=== PATIENT | female | born 1980 | race Caucasian/White ===

== ENCOUNTER 2018-11-07 11:58 | Inpatient (IN) | payer MEDICAID ==
[2018-11-07 12:36] LABS: ADD MAN DIFF? NO
[2018-11-07] MEDS: ACETAMINOPHEN 325 MG TAB PO (12:40)
[2018-11-07] MEDS: CEFTRIAXONE 1 GM/50 ML (PMX) 50 ML IVPB (12:40)
[2018-11-07] MEDS: SODIUM CHLORIDE 0.9% 1L BAG IV* (12:40)
[2018-11-07 12:42] LABS: ABNORMAL IP MESSAGE 1; BASOPHILS % 0.1 % (0.0-2.0); EOSINOPHILS # 0.1 10^3/ul (0.0-0.5); EOSINOPHILS % 0.5 % (0.0-7.0); HEMATOCRIT 44.3 % (37.0-47.0); HEMOGLOBIN 14.9 g/dl (12.0-16.0); LYMPHOCYTES # 0.5 10^3/ul (0.8-2.9); LYMPHOCYTES % 5.7 % (15.0-51.0); MEAN CORPUSCULAR HGB CONC 33.6 g/dl (32.0-37.0); MEAN CORPUSCULAR VOLUME 89.3 fl (82.0-101.0); MEAN PLATELET VOLUME 9.6 fl (7.4-10.4); MONOCYTE # 0.2 10^3/ul (0.3-0.9); MONOCYTES % 2.6 % (0.0-11.0); NEUTROPHIL # 8.4 10^3/ul (1.6-7.5); NEUTROPHILS % 90.9 % (39.0-77.0); PLATELET COUNT 317 10^3/UL (140-415); RED BLOOD COUNT 4.96 10^6/ul (4.20-5.40); RED CELL DISTRIBUTION WIDTH 12.2 % (11.5-14.5)
[2018-11-07 12:42] LABS: WHITE BLOOD COUNT 9.3 10^3/ul (4.8-10.8)
[2018-11-07 12:45] LABS: POSITIVE DIFF @See below
[2018-11-07] MEDS: ONDANSETRON 4 MG INJ IV ×2 (13:01→15:04)
[2018-11-07 13:02] LABS: INR 0.92; PROTIME 12.5 Sec (11.9-14.9)
[2018-11-07 13:03] LABS: ALANINE AMINOTRANSFERASE 58 IU/L (13-69); ALBUMIN 5.2 g/dl (3.3-4.9); ALKALINE PHOSPHATASE 118 IU/L (42-121); ANION GAP 14 (5-13); ASPARTATE AMINO TRANSFERASE 44 IU/L (15-46); BILIRUBIN,INDIRECT 0.4 mg/dl (0-1.1); BILIRUBIN,TOTAL 0.4 mg/dl (0.2-1.3); BLOOD UREA NITROGEN 14 mg/dl (7-20); CALCIUM 10.2 mg/dl (8.4-10.2); CARBON DIOXIDE 16 mmol/L (21-31); CHLORIDE 110 mmol/L (97-110); CREATININE 1.26 mg/dl (0.44-1.00); Estimated GFR 48 mL/min (>60); GLUCOSE 128 mg/dl (70-220); LIPASE 78 U/L (23-300); PARTIAL THROMBOPLASTIN TIME 27.1 Sec (23.0-35.0); POTASSIUM 4.2 mmol/L (3.5-5.1); SODIUM 140 mmol/L (135-144); TOTAL PROTEIN 9.5 g/dl (6.1-8.1)
[2018-11-07 13:12] LABS: TROPONIN-I < 0.012 ng/ml (0.000-0.120)
[2018-11-07 13:27] LABS: LACTIC ACID 1.5 mmol/L (0.5-2.0)
[2018-11-07] MEDS: HYDROmorphONE 0.5 MG/0.5 ML SYG IV (14:23)
[2018-11-07] MEDS ORDERED: morphine 2 MG INJ IV (14:30)
[2018-11-07 14:54] LABS: ADD UMIC NO; UR ASCORBIC ACID NEGATIVE (NEGATIVE); UR BACTERIA FEW /HPF (NONE SEEN); UR BILIRUBIN (Dip) NEGATIVE (NEGATIVE); UR BLOOD (Dip) NEGATIVE (NEGATIVE); UR CLARITY SLIGHTLY CLOUDY (CLEAR); UR COLOR YELLOW (YELLOW); UR GLUCOSE (Dip) NEGATIVE (NEGATIVE); UR KETONES (Dip) NEGATIVE (NEGATIVE); UR LEUKOCYTE ESTERASE (Dip) NEGATIVE Leu/ul (NEGATIVE); UR MUCUS FEW /HPF (NONE SEEN); UR NITRITE (Dip) NEGATIVE (NEGATIVE); UR RBC 1 /HPF (0-5); UR SPECIFIC GRAVITY (Dip) 1.006 (1.003-1.030); UR SQUAMOUS EPITHELIAL CELL FEW /HPF (FEW); UR TOTAL PROTEIN (Dip) NEGATIVE (NEGATIVE); UR UROBILINOGEN (Dip) NEGATIVE (NEGATIVE); UR WBC 7 /HPF (0-5)
[2018-11-07] MEDS: SOD CHLORIDE 0.9% 1,000 ML IV (15:36)
[2018-11-07 16:24] LABS: CREATINE KINASE 35 IU/L (23-200)
[2018-11-07 16:26] LABS: LACTIC ACID 0.7 mmol/L (0.5-2.0)
[2018-11-07] MEDS: CIPROFLOXACIN 200 MG/D5W IVPB 100 ML IVPB ×2 (18:08→23:29)
[2018-11-07 18:21] LABS: LACTIC ACID 0.7 mmol/L (0.5-2.0)
[2018-11-07] MEDS: metroNIDAZOLE 500 MG/NS (PMX) 100 ML IVPB (21:54)
[2018-11-08] MEDS: SOD CHLORIDE 0.9% 1,000 ML IV ×4 (00:10→20:17)
[2018-11-08 05:57] LABS: ADD MAN DIFF? NO
[2018-11-08 06:03] LABS: WHITE BLOOD COUNT 5.7 10^3/ul (4.8-10.8)
[2018-11-08 06:03] LABS: BASOPHILS % 0.2 % (0.0-2.0); EOSINOPHILS # 0.1 10^3/ul (0.0-0.5); EOSINOPHILS % 2.5 % (0.0-7.0); HEMATOCRIT 36.4 % (37.0-47.0); HEMOGLOBIN 12.2 g/dl (12.0-16.0); LYMPHOCYTES % 17.7 % (15.0-51.0); MEAN CORPUSCULAR HEMOGLOBIN 30.5 pg (29.0-33.0); MEAN CORPUSCULAR HGB CONC 33.5 g/dl (32.0-37.0); MEAN PLATELET VOLUME 9.8 fl (7.4-10.4); MONOCYTE # 0.3 10^3/ul (0.3-0.9); MONOCYTES % 5.8 % (0.0-11.0); NEUTROPHIL # 4.2 10^3/ul (1.6-7.5); NEUTROPHILS % 73.6 % (39.0-77.0); PLATELET COUNT 247 10^3/UL (140-415); RED CELL DISTRIBUTION WIDTH 12.4 % (11.5-14.5)
[2018-11-08] MEDS: PANTOPRAZOLE 40 MG INJ IV (06:11)
[2018-11-08] MEDS: metroNIDAZOLE 500 MG/NS (PMX) 100 ML IVPB ×3 (06:12→21:48)
[2018-11-08 06:28] LABS: ALANINE AMINOTRANSFERASE 39 IU/L (13-69); ALBUMIN 4.1 g/dl (3.3-4.9); ALBUMIN/GLOBULIN RATIO 1.32; ALKALINE PHOSPHATASE 74 IU/L (42-121); ANION GAP 9 (5-13); ASPARTATE AMINO TRANSFERASE 32 IU/L (15-46); BILIRUBIN,INDIRECT 0.4 mg/dl (0-1.1); BILIRUBIN,TOTAL 0.4 mg/dl (0.2-1.3); BLOOD UREA NITROGEN 8 mg/dl (7-20); CALCIUM 8.8 mg/dl (8.4-10.2); CARBON DIOXIDE 17 mmol/L (21-31); CHLORIDE 111 mmol/L (97-110); CHOL/HDL RATIO 2.8 RATIO; CHOLESTEROL 139 mg/dl (100-200); Estimated GFR > 60 mL/min (>60); GLUCOSE 86 mg/dl (70-220); HDL CHOLESTEROL 48 mg/dl (34-82); LDL CHOLESTEROL,CALCULATED 78 mg/dl; MAGNESIUM 1.7 mg/dl (1.7-2.5); POTASSIUM 3.6 mmol/L (3.5-5.1); SODIUM 137 mmol/L (135-144); TOTAL PROTEIN 7.2 g/dl (6.1-8.1); TRIGLYCERIDES 64 mg/dl (0-149)
[2018-11-08 06:48] LABS: HEMOGLOBIN A1C 5.2 % (0-5.9)
[2018-11-08 06:51] LABS: THYROID STIMULATING HORMONE 0.887 MIU/L (0.465-4.680)
[2018-11-08] MEDS: CIPROFLOXACIN 200 MG/D5W IVPB 100 ML IVPB (09:44)
[2018-11-08] MEDS: ONDANSETRON 4 MG INJ IV (11:10)
[2018-11-08] MEDS: CIPROFLOXACIN 400MG/D5W 200 ML IVPB (20:17)
[2018-11-09] MEDS: SOD CHLORIDE 0.9% 1,000 ML IV (05:46)
[2018-11-09] MEDS: metroNIDAZOLE 500 MG/NS (PMX) 100 ML IVPB (05:46)
[2018-11-09] MEDS: PANTOPRAZOLE 40 MG INJ IV (05:47)
[2018-11-09] MEDS: CIPROFLOXACIN 400MG/D5W 200 ML IVPB (09:09)
[2018-11-09 10:18] LABS: ADD MAN DIFF? NO
[2018-11-09 10:19] LABS: WHITE BLOOD COUNT 5.7 10^3/ul (4.8-10.8)
[2018-11-09 10:19] LABS: BASOPHILS % 0.2 % (0.0-2.0); EOSINOPHILS # 0.1 10^3/ul (0.0-0.5); EOSINOPHILS % 1.1 % (0.0-7.0); HEMOGLOBIN 10.5 g/dl (12.0-16.0); LYMPHOCYTES % 17.3 % (15.0-51.0); MEAN CORPUSCULAR HEMOGLOBIN 30.3 pg (29.0-33.0); MEAN CORPUSCULAR HGB CONC 32.8 g/dl (32.0-37.0); MEAN CORPUSCULAR VOLUME 92.5 fl (82.0-101.0); MEAN PLATELET VOLUME 9.2 fl (7.4-10.4); MONOCYTE # 0.2 10^3/ul (0.3-0.9); MONOCYTES % 3.4 % (0.0-11.0); NEUTROPHIL # 4.4 10^3/ul (1.6-7.5); NEUTROPHILS % 77.6 % (39.0-77.0); PLATELET COUNT 207 10^3/UL (140-415); RED BLOOD COUNT 3.46 10^6/ul (4.20-5.40); RED CELL DISTRIBUTION WIDTH 12.3 % (11.5-14.5)
[2018-11-09 10:43] LABS: ALANINE AMINOTRANSFERASE 31 IU/L (13-69); ALBUMIN 3.5 g/dl (3.3-4.9); ALBUMIN/GLOBULIN RATIO 1.16; ALKALINE PHOSPHATASE 63 IU/L (42-121); ANION GAP 13 (5-13); ASPARTATE AMINO TRANSFERASE 30 IU/L (15-46); BILIRUBIN,INDIRECT 0.4 mg/dl (0-1.1); BILIRUBIN,TOTAL 0.4 mg/dl (0.2-1.3); BLOOD UREA NITROGEN 8 mg/dl (7-20); CALCIUM 8.1 mg/dl (8.4-10.2); CARBON DIOXIDE 13 mmol/L (21-31); CHLORIDE 116 mmol/L (97-110); CREATININE 0.65 mg/dl (0.44-1.00); Estimated GFR > 60 mL/min (>60); GLUCOSE 71 mg/dl (70-220); SODIUM 142 mmol/L (135-144); TOTAL PROTEIN 6.5 g/dl (6.1-8.1)
[2018-11-09 10:59] LABS: RETICULOCYTE COUNT # 0.043 X10^6 (0.020-0.110); RETICULOCYTE COUNT % 1.2 % (0.5-1.5)
[2018-11-09 10:59] LABS: RETICULOCYTE RBC 3.43
[2018-11-09 12:22] LABS: IRON 32 ug/dl (35-150)
[2018-11-09 12:31] LABS: % IRON SATURATION 11 % SAT (22-52); TOTAL IRON BINDING CAPACITY 288 ug/dl (241-421)
[2018-11-09 13:46] LABS: FERRITIN 42.6 ng/ml (6.2-137.0)
[2018-11-09] MEDS: metroNIDAZOLE 500 MG TAB PO ×2 (13:53→22:06)
[2018-11-09] MEDS: CIPROFLOXACIN 500 MG TAB PO (17:34)
[2018-11-09] MEDS: SOD FERRIC GLUC COMPLX 125 MG in SOD CHLORIDE 0.9% 100 ML IVPB (17:48)
[2018-11-10 05:35] LABS: ADD MAN DIFF? NO
[2018-11-10 05:39] LABS: WHITE BLOOD COUNT 3.5 10^3/ul (4.8-10.8)
[2018-11-10 05:39] LABS: BASOPHILS % 0.3 % (0.0-2.0); EOSINOPHILS # 0.3 10^3/ul (0.0-0.5); EOSINOPHILS % 8.5 % (0.0-7.0); HEMATOCRIT 30.4 % (37.0-47.0); HEMOGLOBIN 10.3 g/dl (12.0-16.0); LYMPHOCYTES # 1.6 10^3/ul (0.8-2.9); LYMPHOCYTES % 45.9 % (15.0-51.0); MEAN CORPUSCULAR HEMOGLOBIN 30.5 pg (29.0-33.0); MEAN CORPUSCULAR HGB CONC 33.9 g/dl (32.0-37.0); MEAN CORPUSCULAR VOLUME 89.9 fl (82.0-101.0); MEAN PLATELET VOLUME 9.9 fl (7.4-10.4); MONOCYTE # 0.3 10^3/ul (0.3-0.9); MONOCYTES % 9.1 % (0.0-11.0); NEUTROPHIL # 1.3 10^3/ul (1.6-7.5); NEUTROPHILS % 35.9 % (39.0-77.0); PLATELET COUNT 236 10^3/UL (140-415); RED BLOOD COUNT 3.38 10^6/ul (4.20-5.40); RED CELL DISTRIBUTION WIDTH 12.6 % (11.5-14.5)
[2018-11-10 05:43] LABS: POSITIVE DIFF @See below
[2018-11-10 06:00] LABS: ANION GAP 8 (5-13); BLOOD UREA NITROGEN 3 mg/dl (7-20); CALCIUM 8.3 mg/dl (8.4-10.2); CARBON DIOXIDE 21 mmol/L (21-31); CHLORIDE 113 mmol/L (97-110); CREATININE 0.57 mg/dl (0.44-1.00); Estimated GFR > 60 mL/min (>60); GLUCOSE 98 mg/dl (70-220); MAGNESIUM 1.7 mg/dl (1.7-2.5); POTASSIUM 3.8 mmol/L (3.5-5.1); SODIUM 142 mmol/L (135-144)
[2018-11-10] MEDS: metroNIDAZOLE 500 MG TAB PO (06:00)
[2018-11-10] MEDS: CIPROFLOXACIN 500 MG TAB PO (06:00)
[2018-11-10] MEDS: PANTOPRAZOLE (EC) 40 MG TAB PO (06:29)
[2018-11-10 07:07] LABS: BAND NEUTROPHILS #M 0.1 10^3/ul (0.0-0.6); BAND NEUTROPHILS % (M) 4 % (0-4); BURR CELLS 1+ (0-0); EOSINOPHILS % (M) 6 % (0-7); GIANT THROMBO% (M) 1 % (0-0); LYMPHOCYTES #M 1.5 10^3/ul (0.8-2.9); LYMPHOCYTES % (M) 45 % (15-51); MONOCYTE #M 0.1 10^3/ul (0.3-0.9); MONOCYTES % (M) 5 % (0-11); OVALOCYTES 1+ (0-0); PLATELET ESTIMATE NORMAL; POIKILOCYTOSIS 1+ (0-0); REACTIVE LYMPHOCYTES #M 0.1 10^3/ul (0.0-0.0); REACTIVE LYMPHOCYTES% (M) 4 % (0-0); SEG NEUT #M 1.3 10^3/ul (1.6-7.5); SEGMENTED NEUTROPHILS (M) % 36 % (39-77); SMUDGE%M 41 % (0-0)
[2018-11-10] MEDS: ONDANSETRON 4 MG INJ IV (10:38)
[2018-11-10] MEDS: NACL 0.9% 3 ML SYG IV (10:38)
[2018-11-10 10:52] LABS: HEMATOCRIT 32.4 % (37.0-47.0); MEAN CORPUSCULAR HEMOGLOBIN 30.5 pg (29.0-33.0); MEAN CORPUSCULAR VOLUME 89.8 fl (82.0-101.0); MEAN PLATELET VOLUME 9.5 fl (7.4-10.4); PLATELET COUNT 248 10^3/UL (140-415); RED BLOOD COUNT 3.61 10^6/ul (4.20-5.40); RED CELL DISTRIBUTION WIDTH 12.3 % (11.5-14.5)
[2018-11-10 10:52] LABS: WHITE BLOOD COUNT 3.4 10^3/ul (4.8-10.8)
[2018-11-10 10:54] LABS: ADD MAN DIFF? YES; POSITIVE DIFF @See below
[2018-11-10 11:17] LABS: BAND NEUTROPHILS #M 0.1 10^3/ul (0.0-0.6); BAND NEUTROPHILS % (M) 3 % (0-4); BURR CELLS 2+ (0-0); EOSINOPHILS % (M) 3 % (0-7); GIANT THROMBO% (M) 2 % (0-0); LYMPHOCYTES % (M) 60 % (15-51); MONOCYTES % (M) 2 % (0-11); PLASMAC%(M) 1 % (0); PLATELET ESTIMATE NORMAL; POIKILOCYTOSIS 2+ (0-0); SEG NEUT #M 1.1 10^3/ul (1.6-7.5); SEGMENTED NEUTROPHILS (M) % 31 % (39-77); SMUDGE%M 11 % (0-0)
[2018-11-10] MEDS: DOCUSATE SODIUM 100 MG CAP PO ×2 (12:04→20:06)
[2018-11-10] MEDS: CIPROFLOXACIN 400MG/D5W 200 ML IVPB ×2 (12:04→20:05)
[2018-11-10] MEDS: SUCRALFATE (100 MG/ML) 10ML CUP PO ×3 (12:04→20:06)
[2018-11-10] MEDS: SOD FERRIC GLUC COMPLX 125 MG in SOD CHLORIDE 0.9% 100 ML IVPB (14:04)
[2018-11-10] MEDS: metroNIDAZOLE 500 MG/NS (PMX) 100 ML IVPB ×2 (15:41→22:21)
[2018-11-11] MEDS: PANTOPRAZOLE (EC) 40 MG TAB PO (05:15)
[2018-11-11] MEDS: metroNIDAZOLE 500 MG/NS (PMX) 100 ML IVPB (05:15)
[2018-11-11 05:47] LABS: HEMATOCRIT 32.3 % (37.0-47.0); HEMOGLOBIN 10.9 g/dl (12.0-16.0); MEAN CORPUSCULAR HGB CONC 33.7 g/dl (32.0-37.0); MEAN PLATELET VOLUME 9.8 fl (7.4-10.4); PLATELET COUNT 244 10^3/UL (140-415); RED BLOOD COUNT 3.63 10^6/ul (4.20-5.40); RED CELL DISTRIBUTION WIDTH 12.5 % (11.5-14.5)
[2018-11-11 05:47] LABS: WHITE BLOOD COUNT 4.4 10^3/ul (4.8-10.8)
[2018-11-11 05:52] LABS: ADD MAN DIFF? YES; POSITIVE DIFF @See below
[2018-11-11 08:04] LABS: ANION GAP 6 (5-13); BLOOD UREA NITROGEN 3 mg/dl (7-20); CALCIUM 9.1 mg/dl (8.4-10.2); CARBON DIOXIDE 24 mmol/L (21-31); CHLORIDE 112 mmol/L (97-110); CREATININE 0.63 mg/dl (0.44-1.00); Estimated GFR > 60 mL/min (>60); GLUCOSE 90 mg/dl (70-220); MAGNESIUM 1.8 mg/dl (1.7-2.5); PHOSPHORUS 3.3 mg/dl (2.5-4.9); POTASSIUM 3.7 mmol/L (3.5-5.1); SODIUM 142 mmol/L (135-144)
[2018-11-11 08:06] LABS: BURR CELLS 1+ (0-0); EOSINOPHILS % (M) 8 % (0-7); GIANT THROMBO% (M) 1 % (0-0); LYMPHOCYTES #M 2.1 10^3/ul (0.8-2.9); LYMPHOCYTES % (M) 48 % (15-51); MONOCYTES % (M) 2 % (0-11); PLATELET ESTIMATE NORMAL; POIKILOCYTOSIS 1+ (0-0); REACTIVE LYMPHOCYTES #M 0.2 10^3/ul (0.0-0.0); REACTIVE LYMPHOCYTES% (M) 6 % (0-0); SEGMENTED NEUTROPHILS (M) % 36 % (39-77); SMUDGE%M 16 % (0-0)
[2018-11-11] MEDS: SUCRALFATE (100 MG/ML) 10ML CUP PO ×4 (09:08→21:44)
[2018-11-11] MEDS: DOCUSATE SODIUM 100 MG CAP PO ×2 (09:08→21:45)
[2018-11-11] MEDS: CIPROFLOXACIN 400MG/D5W 200 ML IVPB (09:08)
[2018-11-11] MEDS: metroNIDAZOLE 500 MG TAB PO ×2 (13:15→21:44)
[2018-11-11] MEDS: SOD FERRIC GLUC COMPLX 125 MG in SOD CHLORIDE 0.9% 100 ML IVPB (13:15)
[2018-11-11] MEDS: CIPROFLOXACIN 500 MG TAB PO (18:01)
[2018-11-12 05:34] LABS: HEMATOCRIT 32.7 % (37.0-47.0); HEMOGLOBIN 10.9 g/dl (12.0-16.0); MEAN CORPUSCULAR HEMOGLOBIN 29.8 pg (29.0-33.0); MEAN CORPUSCULAR HGB CONC 33.3 g/dl (32.0-37.0); MEAN CORPUSCULAR VOLUME 89.3 fl (82.0-101.0); PLATELET COUNT 244 10^3/UL (140-415); RED BLOOD COUNT 3.66 10^6/ul (4.20-5.40); RED CELL DISTRIBUTION WIDTH 12.4 % (11.5-14.5)
[2018-11-12 05:34] LABS: WHITE BLOOD COUNT 5.1 10^3/ul (4.8-10.8)
[2018-11-12] MEDS: PANTOPRAZOLE (EC) 40 MG TAB PO (05:45)
[2018-11-12] MEDS: metroNIDAZOLE 500 MG TAB PO (05:45)
[2018-11-12] MEDS: CIPROFLOXACIN 500 MG TAB PO (05:45)
[2018-11-12 05:48] LABS: ADD MAN DIFF? YES; POSITIVE DIFF @See below
[2018-11-12 06:29] LABS: ANION GAP 6 (5-13); BLOOD UREA NITROGEN 6 mg/dl (7-20); CARBON DIOXIDE 26 mmol/L (21-31); CHLORIDE 109 mmol/L (97-110); CREATININE 0.56 mg/dl (0.44-1.00); Estimated GFR > 60 mL/min (>60); GLUCOSE 101 mg/dl (70-220); MAGNESIUM 1.9 mg/dl (1.7-2.5); PHOSPHORUS 3.5 mg/dl (2.5-4.9); POTASSIUM 4.1 mmol/L (3.5-5.1); SODIUM 141 mmol/L (135-144)
[2018-11-12] MEDS: DOCUSATE SODIUM 100 MG CAP PO (08:34)
[2018-11-12] MEDS: SUCRALFATE (100 MG/ML) 10ML CUP PO (08:34)
[2018-11-12 09:57] LABS: ANISOCYTOSIS 1+ (0-0); BAND NEUTROPHILS % (M) 1 % (0-4); BLAST% (M) 3.1 % (0-0); BURR CELLS 1+ (0-0); EOSINOPHILS % (M) 10 % (0-7); LYMPHOCYTES #M 1.9 10^3/ul (0.8-2.9); LYMPHOCYTES % (M) 38 % (15-51); MONOCYTE #M 0.3 10^3/ul (0.3-0.9); MONOCYTES % (M) 6 % (0-11); PLATELET ESTIMATE NORMAL; POIKILOCYTOSIS 2+ (0-0); SEG NEUT #M 2.1 10^3/ul (1.6-7.5); SEGMENTED NEUTROPHILS (M) % 42 % (39-77); SMUDGE%M 7 % (0-0); TARGET CELLS 1+ (0-0)
== END 2018-11-12 13:05 | disposition home or self-care (01) | DRG 392 ==
LOC: E/R 11:58 → 2NE 14:02
PROVIDERS: Internal Medicine
DX: K52.9 Noninfective gastroenteritis and colitis, unspecified (principal); N17.9 Acute kidney failure, unspecified; K21.9 Gastro-esophageal reflux disease without esophagitis; E86.0 Dehydration; H91.93 Unspecified hearing loss, bilateral; M79.605 Pain in left leg; M79.604 Pain in right leg
CPT/HCPCS: 36415; 70450; 74176; 76830; 80048; 80053; 80061; 81001; 81003; 81025; 82550; 82728; 83036; 83540; 83605; 83690; 83735; 84100; 84443; 84484; 84488; 85025; 85045; 85610; 85730; 86674; 87040-91; 87045; 87086; 87338; 93005; 96374; 96375; 99285-25

== ENCOUNTER 2018-11-28 11:32 | Emergency (ER) | payer MEDICAID ==
[2018-11-28] MEDS: FAMOTIDINE 20 MG INJ IV (13:12)
[2018-11-28] MEDS: morphine 4 MG/ML VIAL IV (13:13)
[2018-11-28] MEDS: ONDANSETRON 4 MG INJ IV (13:13)
[2018-11-28] MEDS: SOD CHLORIDE 0.9% 1,000 ML IV (13:14)
[2018-11-28 13:17] LABS: ADD MAN DIFF? NO
[2018-11-28 13:23] LABS: BASOPHILS % 0.3 % (0.0-2.0); EOSINOPHILS # 0.1 10^3/ul (0.0-0.5); EOSINOPHILS % 1.9 % (0.0-7.0); HEMATOCRIT 39.5 % (37.0-47.0); LYMPHOCYTES # 1.7 10^3/ul (0.8-2.9); LYMPHOCYTES % 24.9 % (15.0-51.0); MEAN CORPUSCULAR HEMOGLOBIN 30.5 pg (29.0-33.0); MEAN CORPUSCULAR HGB CONC 32.9 g/dl (32.0-37.0); MEAN CORPUSCULAR VOLUME 92.7 fl (82.0-101.0); MEAN PLATELET VOLUME 9.4 fl (7.4-10.4); MONOCYTE # 0.5 10^3/ul (0.3-0.9); MONOCYTES % 6.7 % (0.0-11.0); NEUTROPHIL # 4.5 10^3/ul (1.6-7.5); NEUTROPHILS % 66.1 % (39.0-77.0); PLATELET COUNT 295 10^3/UL (140-415); RED BLOOD COUNT 4.26 10^6/ul (4.20-5.40); RED CELL DISTRIBUTION WIDTH 12.4 % (11.5-14.5)
[2018-11-28 13:23] LABS: WHITE BLOOD COUNT 6.8 10^3/ul (4.8-10.8)
[2018-11-28 13:30] LABS: ADD UMIC NO; UR ASCORBIC ACID NEGATIVE (NEGATIVE); UR BILIRUBIN (Dip) NEGATIVE (NEGATIVE); UR BLOOD (Dip) NEGATIVE (NEGATIVE); UR CLARITY CLEAR (CLEAR); UR COLOR YELLOW (YELLOW); UR GLUCOSE (Dip) NEGATIVE (NEGATIVE); UR KETONES (Dip) NEGATIVE (NEGATIVE); UR LEUKOCYTE ESTERASE (Dip) NEGATIVE Leu/ul (NEGATIVE); UR NITRITE (Dip) NEGATIVE (NEGATIVE); UR TOTAL PROTEIN (Dip) NEGATIVE (NEGATIVE); UR UROBILINOGEN (Dip) NEGATIVE (NEGATIVE)
[2018-11-28 13:40] LABS: ALANINE AMINOTRANSFERASE 44 IU/L (13-69); ALBUMIN 4.8 g/dl (3.3-4.9); ALBUMIN/GLOBULIN RATIO 1.29; ALKALINE PHOSPHATASE 97 IU/L (42-121); ANION GAP 11 (5-13); ASPARTATE AMINO TRANSFERASE 33 IU/L (15-46); BILIRUBIN,INDIRECT 0.6 mg/dl (0-1.1); BILIRUBIN,TOTAL 0.6 mg/dl (0.2-1.3); BLOOD UREA NITROGEN 4 mg/dl (7-20); CALCIUM 9.6 mg/dl (8.4-10.2); CARBON DIOXIDE 26 mmol/L (21-31); CHLORIDE 107 mmol/L (97-110); CREATININE 0.62 mg/dl (0.44-1.00); Estimated GFR > 60 mL/min (>60); GLUCOSE 87 mg/dl (70-220); INR 0.97; LIPASE 92 U/L (23-300); POTASSIUM 4.2 mmol/L (3.5-5.1); SODIUM 144 mmol/L (135-144); TOTAL PROTEIN 8.5 g/dl (6.1-8.1)
[2018-11-28 13:44] LABS: PARTIAL THROMBOPLASTIN TIME 26.9 Sec (23.0-35.0)
[2018-11-28] MEDS: IOHEXOL 300MG/ML 150 ML BTL (14:55)
[2018-11-28] MEDS: SOD CHLORIDE 0.9% 100 ML (14:55)
== END 2018-11-28 15:27 | disposition home or self-care (01) ==
LOC: FTE 11:32
DX: K21.9 Gastro-esophageal reflux disease without esophagitis (principal); K20.9 Esophagitis, unspecified
CPT/HCPCS: 36415; 74177; 80053; 81003; 81025; 83690; 85025; 85610; 85730; 96361; 96374; 96375; 99285-25